=== PATIENT | male | born 1980 | race African-American/Black ===

== ENCOUNTER 2024-11-22 08:12 | Emergency (ER) | payer BC, SELFPAY ==
--- NOTE | ~2024-11-22 | CT_ITS ---
CT abdomen pelvis wo con Ordering provider: Toby Guerrero MD History: 44 years Male with . left back/flank pain . Comparison: None. Technique: CT abdomen and pelvis without IV and without oral contrast. Automated exposure control and iterative reconstruction technique were employed. The dose-length product was 1579.58 mGy-cm. Findings: VISUALIZED LOWER CHEST: Normal. UPPER ABDOMINAL ORGANS: Liver: Fat infiltration. Mild hepatomegaly. Gallbladder: Normal. Spleen: Normal. Stomach/duodenum: Normal. Pancreas: Normal. Adrenals: Left adrenal adenoma measuring 2 cm. Kidneys: 1.5 cm cyst in the left kidney upper pole. 5 mm left lower ureteric stone is noted with mild left hydronephrosis. Left perinephric fat stranding and with stranding around the left renal pelvis and ureter. The right kidney is unremarkable. PELVIC ORGANS: The bladder is slightly underfilled. BOWEL AND MESENTERY: Colon: Mild sigmoid diverticulosis without diverticulitis. Normal appendix. Small Bowel: Normal. No obstruction. Peritoneum/mesentery: No free air or free fluid. No mesenteric lymphadenopathy. RETROPERITONEUM: Normal aorta. No retroperitoneal lymphadenopathy. MUSCULOSKELETAL: Superficial soft tissues: Small fat-containing umbilical hernia. Otherwise, The superficial soft tiss ues are normal. Bones: Normal spine. Small bony fragment seen anterior to the left pubic bone most likely due to old fracture or nonunited apophysis. Bilateral hip osteoarthritic changes. Bilateral sacroiliitis with fu pilo between. IMPRESSION: 1. Left lower ureteric stone with left mild hydronephrotic changes. 2. Mild hepatomegaly with fat infiltration. 3. Left adrenal adenoma measuring 2 cm. Clinical correlation and Further evaluation with dynamic CT or MRI is advised. Reviewed, dictated and finalized at location A. IMPRESSION: 1. Left lower ureteric stone with left mild hydronephrotic changes. 2. Mild hepatomegaly with fat infiltration. 3. Left adrenal adenoma measuring 2 cm. Clinical correlation and Further evalu ation with dynamic CT or MRI is advised.
[2024-11-22 08:13] VITALS: BP 164/88; PULSE 97; RESP 17; TEMP 36.6; O2SAT 100
[2024-11-22 08:37] LABS: Basophils Percent Auto 0.2 % (0.2-1.2); Hematocrit 49.5 % (42.0-52.0); Hemoglobin 15.8 g/dL (14.0-18.0); Immature Granulocyte Absolute 0.04 K/mm3 (0.00-0.031); Immature Granulocyte Percent A 0.3 % (0-0.5); Lymphocytes Percent Auto 17.6 % (18.3-44.2); Mean Corpuscular HGB Conc 31.9 g/dl (32-36); Mean Corpuscular Hemoglobin 26.4 pg (26-34); Mean Corpuscular Volume 82.8 fl (80-100); Mean Platelet Volume 11.3 fl (7.4-10.4); Monocytes Absolute Auto 0.9 K/mm3 (0.1-0.6); Monocytes Percent Auto 6.8 % (2.6-8.5); Neutrophils Absolute Auto 9.4 K/mm3 (1.3-6.7); Neutrophils Percent Auto 75.1 % (45.5-73.1); Platelet Count Result 309 k/mm3 (150-375); Red Blood Count 5.98 M/mm3 (4.6-6.20); Red Cell Distribution Width 13.9 % (11.5-14.5); White Blood Count 12.5 K/mm3 (4.5-10.0)
[2024-11-22 08:51] LABS: Alanine Aminotransferase 32 U/L (6-50); Albumin Level 5.2 g/dL (3.5-5.1); Alkaline Phosphatase 87 U/L (38-126); Anion Gap 15 mmol/L (4-12); Aspartate Amino Transferase 29 U/L (17-59); Bilirubin,Total 1.1 mg/dL (0.2-1.3); Blood Urea Nitrogen 14 mg/dL (9-20); Calcium 9.9 mg/dL (8.4-10.2); Carbon Dioxide 26 mmol/L (22-30); Chloride 101 mmol/L (98-107); Estimated CRCL calculation 101 ml/min; Estimated Glomerular Filt Rate > 60; Glucose 119 mg/dL (65-110); Potassium 3.5 mmol/L (3.4-5.0); Sodium 142 mmol/L (137-145)
--- NOTE | 2024-11-22 08:57 | ED_ITS ---
HPI - Male Genitourinary General Chief complaint: Urogenital-Male Stated complaint: flank pain Time Seen by Provider: 11/22/24 08:30 History of Present Illness HPI Narrative: Patient is a 44-year-old male who presents ER with left-sided flank pain. Began yesterday while driving. 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 Pain is intensified today. Associated with nausea vomiting. Feels like he has some radiation to his left abdomen. He reports history of kidney stones. No history of ureteral stenting or lithotripsy. Denies any injury to his low back that could be causing spasm. No urinary frequency urgency or dysuria. No hematuria. Related Data Home Medications ?Medication ?Instructions ?Recorded ?Confirmed ?Last Taken ?Type magnesium salicylate-DPH 580 mg-25 1 - 2 tablet PO .every 6 hours PRN 11/22/24 11/22/24 Unknown History mg tablet back pain metformin 1,000 mg tablet 1,000 mg PO BID 11/22/24 11/22/24 Unknown History metoprolol tartrate 25 mg tablet 12.5 mg PO BID 11/22/24 11/22/24 Unknown History rosuvastatin 10 mg tablet 10 mg PO DAILY 11/22/24 11/22/24 Unknown History Allergies Allergy/AdvReac Type Severity Reaction Status Date / Time fructose Allergy Unknown Abdominal Verified 11/22/24 08:34 Pain Review of Systems 2 Review of Systems: All systems reviewed & are unremarkable except as noted in HPI and below Constitutional: Constitutional: Reports no additional constitutional complaints Cardiovascular: Cardiovascular: Reports no additional cardiovascular complaints Respiratory: Respiratory: Reports no additional respiratory complaints Gastrointestinal: Gastrointestinal: Reports no additional gastrointestinal complaints Genitourinary: Genitourinary: Reports no additional male genitourinary complaints Musculoskeletal: Musculoskeletal: Reports no additional musculoskeletal complaints [facility] Past Medical History Medical History (Updated 11/22/24 @ 10:47 by Toby Guerrero MD) Kidney stones Hyperlipidemia Diabetes Hypertension Exam 2 Narrative: GENERAL: Uncomfortable-appearing, well-nourished, and in no acute distress. HEAD: Normocephalic, atraumatic. ENT: Mucous membranes moist. CHEST: Clear to auscultation. No respiratory distress. HEART: Regular rate and rhythm. Normal peripheral pulses. ABDOMEN: Soft, nontender, nondistended. Over back: No reproducible midline or paraspinal tenderness of the T/L-spine. EXTREMITIES: Normal range of motion. No edema. SKIN: Warm, dry, no rash. NEURO: Alert and oriented x3. PSYCH: Normal mood and affect. Course Course Emergency Course: Pain controlled with Toradol. Informed of results. Received 1 L IV fluid. Discharge home with small supply Toradol and Tylenol with hydrocodone to help treat pain while he tries to pass the stone. Patient also be provided a urine strainer. Discussed return precautions. Vital Signs Vital signs: Vital Signs Temperature 98 F 11/22/24 08:13 Pulse Rate 97 11/22/24 08:13 Respiratory Rate 17 11/22/24 08:13 Blood Pressure 164/88 H 11/22/24 08:13 Pulse Oximetry 100 11/22/24 08:13 Oxygen Delivery Room Air 11/22/24 08:13 Temperature 98 F 11/22/24 08:13 Pulse Rate 97 11/22/24 08:13 Respiratory Rate 17 11/22/24 08:13 Blood Pressure 164/88 H 11/22/24 08:13 Pulse Oximetry 100 11/22/24 08:13 Oxygen Delivery Room Air 11/22/24 08:13 MDM - Male Genitourinary Lab Data 11/22/24 08:32 11/22/24 08:32 Labs: Lab Results 11/22/24 11/22/24 Range/Units 08:32 10:15 WBC 12.5 H (4.5-10.0) K/mm3 RBC 5.98 (4.6-6.20) M/mm3 Hgb 15.8 (14.0-18.0) g/dL Hct 49.5 (42.0-52.0) % MCV 82.8 (80-100) fl MCH 26.4 (26-34) pg MCHC 31.9 L (32-36) g/dl RDW 13.9 (11.5-14.5) % Plt Count 309 (150-375) k/mm3 MPV 11.3 H (7.4-10.4) fl Immature Gran % (Auto) 0.3 (0-0.5) % Neut % (Auto) 75.1 H (45.5-73.1) % Lymph % (Auto) 17.6 L (18.3-44.2) % Nance % (Auto) 6.8 (2.6-8.5) % Eos % (Auto) 0.0 (0-4.4) % Baso % (Auto) 0.2 (0.2-1.2) % Lymph # (Auto) 2.20 (0.9-3.2) K/mm3 Nance # (Auto) 0.9 H (0.1-0.6) K/mm3 Eos # (Auto) 0.0 (0-0.3) K/mm3 Baso # (Auto) 0.0 (0.0-0.1) K/mm3 Abs Immat Gran (auto) 0.04 H (0.00-0.031) K/mm3 Absolute Neuts (auto) 9.4 H (1.3-6.7) K/mm3 Absolute Nucleated RBC 0.000 (0.0-0.012) K/mm3 Nucleated RBC % 0.0 (0.0-0.2) % Sodium 142 (137-145) mmol/L Potassium 3.5 (3.4-5.0) mmol/L Chloride 101 (98-107) mmol/L Carbon Dioxide 26 (22-30) mmol/L Anion Gap 15 H (4-12) mmol/L BUN 14 (9-20) mg/dL Creatinine 1.21 (0.7-1.3) mg/dL Estim Creat Clear Calc 101 ml/min Estimated GFR > 60 (59 - ) Glucose 119 H (65-110) mg/dL Calcium 9.9 (8.4-10.2) mg/dL Total Bilirubin 1.1 (0.2-1.3) mg/dL AST 29 (17-59) U/L ALT 32 (6-50) U/L Alkaline Phosphatase 87 (38-126) U/L Total Protein 9.0 H (6.3-8.2) g/dL Albumin 5.2 H (3.5-5.1) g/dL Urine Color Yellow (Yellow) Urine Appearance Clear (Clear) Urine pH 6.5 (5.0-9.0) Ur Specific Waterman 1.020 (1.001-1.035) Urine Protein Trace (Negative) mg/dL Urine Glucose (UA) Negative (Negative) mg/dL Urine Ketones 1+ H (Negative) mg/dL Ur Blood (Man) 2+ H (Negative) Urine Nitrate Negative (Negative) Urine Bilirubin Negative (Negative) Urine Urobilinogen 1.0 (<2.0) mg/dL Leukocyte Esterase Rfl Trace H (Negative) SHAMAR/UL Urine RBC 11-20 H (0-2) /hpf Urine WBC 0-5 (0-3) /hpf Ur Squamous Epith Cells None seen (Few) /hpf Urine Bacteria None seen /hpf Urine Casts 0-2 Imaging Data Radiologist's impression: ITS Impressions Abdomen/Pelvis CT 11/22/24 09:05 IMPRESSION: 1. Left lower ureteric stone with left mild hydronephrotic changes. 2. Mild hepatomegaly with fat infiltration. 3. Left adrenal adenoma measuring 2 cm. Clinical correlation and Further evaluation with dynamic CT or MRI is advised. Discharge Plan Discharge Clinical Impression: Ureterolithiasis Patient Disposition: Home Condition: Stable Instructions: Ureteral Stones (ED) Additional Instructions: Return to the emergency department if you develop severe abdominal pain, severe nausea and vomiting to the point where you are unable to keep down fluids, if you develop chest pain or difficulty breathing, blood in your stool, dizziness or fainting, or if you develop any other new or concerning symptoms as these could be signs of more serious medical illness. Try to stay well hydrated. Patient Language: Iranian Prescriptions: New hydrocodone-acetaminophen 5-325 mg tablet 1 tablet PO Q6H PRN (Reason: pain) Qty: 12 0RF ondansetron 4 mg tablet,disintegrating 4 mg PO Q6H PRN (Reason: nausea and vomiting) Qty: 10 0RF ketorolac 10 mg tablet 10 mg PO Q8H PRN (Reason: pain) Qty: 12 0RF Rx Instructions: maximum total duration of 5 days from all oral, intranasal, or parenteral formulations No Action magnesium salicylate-DPH 580-25 mg tablet 1 - 2 tablet PO .every 6 hours PRN (Reason: back pain) metformin 1,000 mg tablet 1,000 mg PO BID rosuvastatin 10 mg tablet 10 mg PO DAILY metoprolol tartrate 25 mg tablet 12.5 mg PO BID Follow-up/Referrals: Ehsan Lucero MD [Physician] - 1 Week UNKNOWN,DOCTOR [Primary Care Provider] -
[2024-11-22] MEDS: SODIUM CHLORIDE 0.9% IV 1,000 ML 999 ML IV CONT (08:59)
[2024-11-22] MEDS: KETOROLAC 30 MG/ML VIAL (*BKC) IV PUSH (08:59)
--- OUTSIDE RECORDS SUMMARY | 2024-11-22 10:20 | XMS_ITS | Clinical Summary ---
Author Organization [facility] Address [address] [place] [address] Care Team Providers Care Central Station Operator Name Role Phone Patient, None Per Primary Care Provider Unavaila ble Source Comments This disclosure is being made pursuant to the Open-Plug program and maynot contain all information available regarding this patient.[facility] Allergies No known active allergies Medications omeprazole (PRILOSEC) 40 MG capsule Take 40 mg by mouth 2 (two) times daily. Active ondansetron (ZOFRAN) 4 MG tablet Take 4 mg by mouth every 8 (eight) hours as needed for Nausea. Active Social History Tobacco Use Types Packs/Day Years Used Date Smoking Tobacco: Never Smokeless Tobacco: Never Alcohol Use Standard Drinks/Week Comments Not Currently 0 (1 standard drink = 0.6 oz pur e alcohol) Sex and Gender Information Value Date Recorded Sex Assigned at Not on file Legal Sex Male 4:53 AM CDT Gender Identity Not on file Sexual Orientation Not on file Last Filed Vital Signs Vital Sign Reading Time Taken Comments Blood Pressure 123/70 09/04/2020 9:00 AM [employer] Pulse 74 09/04/2020 9:00 AM [employer] Temperature 36.2 C (97.2 F) 09/04/2020 8:12 AM [employer] Respiratory Rate 18 09/04/2020 9:00 AM [employer] Oxygen Saturation 95% 09/04/2020 9:00 AM [employer] Inhaled Oxygen Concentration - - Weight 137.6 kg (303 lb 5.7 oz) 09/04/2020 6:08 AM [employer]SH[employer] Height 185.4 cm (6' 0.99 ) 09/04/2020 6:08 AM CS T Body Mass Index 40.03 09/04/2020 6:08 AM [employer]SH[employer] Plan of Treatment Health Maintenance Due Date Last Done Comments Lab-Cholesterol Screening 1980 Lab-Hepatitis C Screening 1980 Annual Wellness Visit 01/10/1998 Hepatitis B Vaccine (1 of 3 - 19+ 3-dose series) 01/10/1999 Tetanus/Pertussis Vaccine Teen/Adult (1 - Tdap) 01/10/1999 COVID-19 Vaccine (3 - 2023-2 5 season) 2024 07/01/2021, 06/03/2021 Influenza Vaccine (#1) 2024 , 06/08/2020, 06/10/2017 Zoster (Shingles) Vaccine 50 + (1 of 2) 01/10/2030 RSV Adult (1 - 1-dose 75+ series) 01/10/2055 HIB Vaccine Aged Out No longer eligi ble based on patient's age to complete this topic HPV Vaccine (F:9-26YO,M: 9-22) Aged Out No longer eligible based on patient's age to complete this topic Hepatitis A Vaccine Aged Out No longe r eligible based on patient's age to complete this topic IPV Vaccine Aged Out No longer eligi ble based on patient's age to complete this topic Meningococcal Conjugate Vaccine Aged Out No longer eligible b ased on patient's age to complete this topic Pneumococcal Vaccines 0-49 yo Aged Out No longer eligible based on patient's age to complete this topic RSV < 20 Months Aged Out No longer el igible based on patient's age to complete this topic Care Teams Central Station Operator Relationship Specialty Start Date End Date Patient, None Per PCP - General 08/28/20
--- OUTSIDE RECORDS SUMMARY | 2024-11-22 10:20 | XMS_ITS | Continuity of Care Document ---
Author Organization [facility] Address [address] [place] [address] Phone Care Team Providers Care Alteration Manager Name Role Phone Freddie BUSTAMANTE, Tenzin Unavailable Unavailable Medications Medication Instructions Dosage Effective Dates (start - stop) Status Comments No Drug Therapy Prescribed Procedures Procedure Date HEAD RESIDENT LASIK SCREENING/ VISUAL ACUITY SCREEN PACHYMETRY NO CHARGE TOPOGRAPHY NO CHARGE Advance Directives Directive Yes / No Effective Date File Name No Information Encounters Encounter Description Practice Location Reason(s) For Visit Diagnoses Date Provider Providers Copied on Encounter [facility], [address], [place], [address], [place] tel:[phone] [facility] LASIK Screening (chief complaint) Myopia, bilateral Freddie Dave. [address], [place], [place], [id number], [place]. tel:[phone] Referring Provider: Tenzin Clay, [address] [place], [place], [address]. tel:[phone] Family History Family Member Type Diagnosis Age At Onset Father Problem Diabetes mellitus Payers Payer name Insurance type Covered democrat ID Authoriza tion(s) No Information Social History Type Description Quantity Date Captured Comments Alcohol Use Details Unknown Caffeine Use Details Tobacco Use Status Never smoked tobacco 2022 Smoking Status Never smoker Non-Smoking Tobacco Use Details : No Details Available : No Details Available Sex Male Chief Complaint And Reason For Visit From encounter dated '09/09/2022 08:50'. LASIK Screening (chief complaint). Description: The 42 year old male presents for evaluation of LASIK Screening. 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 - interested in freedom from gls and cls- VSP Functional Status Date Functional Assessmen t No Information Medications Administered Medication Instructions Dosage Effective Dates (start - stop) Status Comments No Drug Therapy Prescribed Instructions Date Instruction Additional Infor constanza Refer to Dr Austin or [facility]/- gave pt their clinic information/jls Related to Myopia, bilateral Assessments Type Assessment Date assessment Myopia, bilateral impression Per Dr Frazier _ TP looks ok but pachy is too thin - Remaining 301 microns - 38% calculation - not a good LASIK candidate - consider PRK Patient Care Teams Name Effective Dates (start - stop) Status Members No Information
--- OUTSIDE RECORDS SUMMARY | 2024-11-22 10:20 | XMS_ITS | Encounter Summary ---
Author Organization [facility] Address [address] [place] [address] Phone Care Team Providers Care Case Management Associate Name Role Phone Azam Tony Primary Care Provider [phone] Celestine Maldonado MD Primary Care Provider [phone] [place]imm Primary Care Provider Provider, No-Primary Care Primary Care Provider Unavailable Encounter Details Date Type Department Care Team (Late st Contact Info) Description 02/06/2017 Telephone [facility] - [address] [place] [phone] Brandon Coburn [address] [place], [place] [phone] Social History Tobacco Use Types Packs/Day Years Used Date Smoking Tobacco: Never Smokeless Tobacco: Never Sex and Gender Information Value Date Recorded Sex Assigned at Male 08/13/2021 12:57 PM 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 Legal Sex Male 2:59 AM CDT Gender Identity Male 08/13/2021 12:57 PM 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 Sexual Orientation Straight 08/13/2021 12 :57 PM 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 documented as of this encounter Miscellaneous Notes * Telephone Encounter - Jannet Armenta RN - 02/06/2017 4:14 PM CDT Faxed Breath testing results to [facility] documented in this encounter Plan of Treatment Not on file documented as of this encounter Visit Diagnoses Not on filedocumented in this encounter Additional Health Concerns Infection Onset Date Last Indicated Resolved Time Rule Out COVID-19 07/27/2021 07/27/2021 07/27/2021 12:58 PM 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 COVID-19 07/27/2021 07/27/2021 08/15/2021 12:5 6 PM 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 Rule Out COVID-19 07/15/2023 07/15/2023 07/15/2023 4:50 PM 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 COVID-19 07/15/2023 07/15/2023 08/14/2023 9:42 PM 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 documented as of this encounter Care Teams Case Management Associate Relationship Specialty Start Date End Date Azam Tony PCP - General 02/10/14 02/13/20 Celestine Maldonado MD [address] [place] [id number] PCP - General 02/14/20 02/16/22 Twin [place]imm [address] [place] [id number] PCP - General Family Practice 02/17/22 07/14/23 Provider, No-Primary Care PCP - General 07/15/23 documented as of this encounter
--- OUTSIDE RECORDS SUMMARY | 2024-11-22 10:20 | XMS_ITS | Clinical Summary ---
Author Organization [facility] ([facility] Address [address] [place] [address] Phone Care Team Providers Care Formulation Scientist Name Role Phone Kelton Kaur Primary Care Provider + Allergies Active Allergy Reactions Criticality Noted Date Comments Fructose Nausea And Vomiting 02/14/2020 Medications rosuvastatin (CRESTOR) 10 MG tabletIndicatio ns:Type 2 diabetes mellitus without complication, without long-term current use of insulin (HCC) Take 1 tablet (10 mg total) by mouth daily. 90 tablet 1 09/21/2024 6 Active metFORMIN (GLUCOPHAGE) 500 MG tabletIndicatio ns:Type 2 diabetes mellitus without complication, without long-term current use of insulin (HCC) 1 pill twice daily for 1 week, then up by 1 pill weekly until at 2 pills twice daily. 120 tablet 5 09/21/2024 Active metoprolol tartrate (LOPRESSOR) 25 MG tabletIndicatio ns:Irregular heart beat Take 0.5 tablets (12.5 mg total) by mouth 2 (two) times daily. 90 tablet 3 11/09/2024 6 Active Active Problems Problem Noted Date Diagnosed Date Irregular heart beat 09/14/2024 Family history of stroke 09/14/2024 Chronic left-sided low back pain, unspecified whether sciatica present 09/14/2024 PVC (premature ventricular contraction) 09/14/19 25 Morbid obesity 09/06/2020 LINDA (obstructive sleep apnea) 04/20/2020 Type 2 diabetes mellitus, wi [facility] long-term current use of insulin 02/17/2020 Osteoarthritis 02/13/2020 Intestinal bacterial overgrowth 02/13/2020 GERD (gastroesophageal reflux disease) 0 Fatty liver 02/13/2020 Constipation 02/13/2020 Diverticulitis Encounters Date Type Department Care Team Description 11/09/2024 Telephone [facility]iology [facility] [address] [place] [phone] Toby Hernandes MA Medication Management (Lopressor Rx) 11/09/2024 Telephone Cardiology Clinic [address] [place] [phone] Margarita Huerta MD 10/27/2024 2:00 PM CDT Ancillary Procedure [facility] Ultrasound [address] [place] [phone] PVC (premature ventricular contraction) 10/27/2024 12:05 PM CDT Office Visit Cardiology Clinic [address] [place] [phone] Margarita Huerta MD Encounter to establish care with new doctor (Primary Dx); Irregular heart beat; Other fatigue; PVC (premature ventricular contraction) 09/21/2024 11:30 AM GAS LEAK INSPECTOR Office Visit [facility] [address] [place] [phone] Kelton Kaur ARNP Type 2 diabetes mellitus without complication, without long-term current use of insulin ([facility]) (Primary Dx); Gardnerella vaginalis infection; LINDA (obstructive sleep apnea); Intestinal bacterial overgrowth; Gastroesophageal reflux disease without esophagitis; Constipation, unspecified constipation type; Diverticulitis; Fatty liver; Irregular heart beat; PVC (premature ventricular contraction); Family history of stroke; Other fatigue 09/19/2024 Orders Only [facility] [address] [place] [phone] Natasha, Kelton Héctor, PHYSICAL THERAPIST ASSISTANT Gardnerella vaginalis infection (Primary Dx) 09/16/2024 Orders Only [facility] [address] [place] [address] Kelton Kaur ARNP Hematuria, unspecified type (Primary Dx); Bacteria in urine 09/14/2024 1:50 PM GAS LEAK INSPECTOR Ancillary Procedure [facility] [address] [facility] [employer] [facility] [address] [place] [address] 09/14/2024 1:00 PM GAS LEAK INSPECTOR Office Visit [facility] [address] [place] [phone] Kelton Kaur ARNP LINDA (obstructive sleep apnea) (Primary Dx); Intestinal bacterial overgrowth; Gastroesophageal reflux disease without esophagitis; Fatty liver; Constipation, unspecified constipation type; Irregular heart beat; Family history of stroke; Morbid obesity (CMS); Osteoarthritis, unspecified osteoarthritis type, unspecified site; Chronic left-sided low back pain, unspecified whether sciatica present; Diverticulitis; Screening for cardiovascular condition; Type 2 diabetes mellitus without complication, without long-term current use of insulin (CMS); Other fatigue; PVC (premature ventricular contraction) from Last 3 Months Immunizations Immunization Administration Dates Next Due Influenza, Quadrivalent (PF) 06/03/2021,06/08/20 20 Moderna SARS-CoV-2 Monovalent Vaccine 07/01/2021 ,06/03/2021 Pneumococcal Conjugate Vaccine, 20 Valent 2021 Family History Medical History Relation Name Comments No Known Problems Brother Diabetes Father Heart disease Father irregular hear t rhythm Stroke Father Heart disease Mother irregular hear t rhythm Heart disease Paternal Grandfather [place] Diabetes Paternal Uncle No Known Problems Sister 1 No Known Problems Sister 2 Relation Name Status Comments Brother Alive Father Maternal Grandfather Maternal Grandmother Mother Alive Paternal Grandfather Paternal Grandmother Paternal Uncle Alive Sister 1 Alive Sister 2 Alive Social History Tobacco Use Types Packs/Day Years Used Date Smoking Tobacco: Never Passive Smoke Exposure: Past Smokeless Tobacco: Never Tobacco Cessation:Counseling Given: Not Answered Alcohol Use Standard Drinks/Week Comments Yes 2 (1 standard drink = 0.6 oz pur e alcohol) socially Overall Financial Resource Strain (CARDIA) Answe r Date Recorded How hard is it for you to pa y for the very basics like food, housing, medical care, and heating? Not hard at all 09/14/2024 PHQ-2 Answer Date Recorded PHQ-2 Score 0 09/14/2024 Hunger Vital Sign Answer Date Recorded Within the past 12 months, y ou worried that your food would run out before you got the money to buy more. Never true 09/14/19 25 Within the past 12 months, t he food you bought just didn't last and you didn't have money to get more. Never true 09/14/2024 PRAPARE - Transportation Answer Date Re corded In the past 12 months, has l ack of transportation kept you from medical appointments or from getting medications? No 08/27 In the past 12 months, has l ack of transportation kept you from meetings, work, or from getting things needed for daily living? No 09/14/2024 Housing Stability Vital Sign Answer Los e Recorded In the last 12 months, was t here a time when you were not able to pay the mortgage or rent on time? No 09/14/2024 Number of Times Moved in the Last Year Not on fi le 09/14/2024 At any time in the past 12 m [facility], were you homeless or living in a usp (including now)? No 09/14/2024 Sex and Gender Information Value Date Recorded Sex Assigned at Not on file Legal Sex Male 11:06 AM GAS LEAK INSPECTOR Gender Identity Not on file Sexual Orientation Not on file Last Filed Vital Signs Vital Sign Reading Time Taken Comments Blood Pressure 124/85 10/27/2024 12:15 PM CDT Pulse 78 10/27/2024 12:15 PM CDT Temperature 36.3 C (97.3 F) 09/21/2024 11:47 AM GAS LEAK INSPECTOR Respiratory Rate 18 09/21/2024 11:47 AM GAS LEAK INSPECTOR Oxygen Saturation 97% 10/27/2024 12:15 PM CDT Inhaled Oxygen Concentration - - Weight 142.9 kg (315 lb) 10/27/2024 12:15 PM CDT Height 185.4 cm (6' 1 ) 10/27/2024 12:15 PM CDT Body Mass Index 41.56 10/27/2024 12:15 PM CDT Plan of Treatment Upcoming Encounters Date Type Department Care Team (Late st Contact Info) Description 12/20/2024 10:30 AM CDT Office Visit [facility] [address] [place] [phone] Kelton Kaur ARNP [address] [place] [address] 01/26/2025 9:00 AM CDT Ancillary Procedure [facility] Ultrasound [address] [place] [phone] 01/26/2025 10:00 AM CDT Office Visit Cardiology Clinic [address] [place] [phone] Margarita Huerta MD [address] [place], [place] [phone] Health Maintenance Due Date Last Done Comments DTAP/TDAP/TD VACCINES (1 - Tdap) 03/21/2025 Postponed from 01/10/1999 (Patient Refused) INFLUENZA VACCINE (Season Ended) 2025 06/03/2021, 06/08/2020, 08/04/2019 (Declined) Kidney Health Evaluation 09/15/2025 09/15/2024 HEPATITIS B VACCINES (1 of 3 - 19+ 3-dose series) 09/21/2025 Postponed from 01/10/1999 (Patient Scheduled) ZOSTER VACCINES (1 of 2) 01/10/2030 RSV PATIENTS AGED 60+ OR (1 - 1-dose 75+ series) 01/10/2055 COVID VACCINES Discontinued 02/17/2022, 07/01/2021, 06/03/2021 PNEUMOCOCCAL VACCINE Completed 02/17/2022 HEPATITIS A VACCINES Aged Out No long er eligible based on patient's age to complete this topic HPV VACCINES Aged Out No longer eligi ble based on patient's age to complete this topic MENINGOCOCCAL B VACCINE Aged Out No l onger eligible based on patient's age to complete this topic MENINGOCOCCAL VACCINE Aged Out No luke trisha eligible based on patient's age to complete this topic MMR VACCINES Discontinued POLIO VACCINES Aged Out No longer cata faye based on patient's age to complete this topic VARICELLA VACCINES Discontinued Goals Goal Patient Goal Type Associated Problems Recent Progress Patient-Stated? Author Exercise 3x per week (30 min per time) Exercise No Tamera Simpson RN Procedures Procedure Name Priority Date/Time Associated Diagnosis Comments HOLTER MONITOR 3DAYS TO 7DAYS Routine 10/27/2024 2:12 PM CDT PVC (premature ventricular contraction) ECG 12-LEAD Routine 10/27/2024 12:21 PM CDT Irregular heart beat PVC (premature ventricular contraction) POCT GLUCOSE Routine 09/21/2024 12:15 PM GAS LEAK INSPECTOR Type 2 diabetes mellitus without complication, without long-term current use of insulin (CMS) PROTIME-INR Routine 09/15/2024 9:24 AM GAS LEAK INSPECTOR Irregular heartbeat URINALYSIS Routine 09/15/2024 8:45 AM GAS LEAK INSPECTOR Other fatigue URINE MICROSCOPIC Routine 09/15/2024 8:4 5 AM GAS LEAK INSPECTOR Other fatigue URINE MICROSCOPIC Routine 09/15/2024 8:4 5 AM GAS LEAK INSPECTOR Other fatigue MICROALBUMIN / CREATININE URINE RATIO Routine 09/15/2024 8:45 AM GAS LEAK INSPECTOR Type 2 diabetes mellitus without complication, without long-term current use of insulin (CMS) URINE CULTURE Add-On 09/15/2024 8:45 AM GAS LEAK INSPECTOR Hematuria, unspecified type Bacteria in urine MAGNESIUM Routine 09/15/2024 8:29 AM GAS LEAK INSPECTOR Irregular heart beat TSH Routine 09/15/2024 8:29 AM GAS LEAK INSPECTOR Irregular heart beat Other fatigue T4, FREE Routine 09/15/2024 8:29 AM GAS LEAK INSPECTOR Irregular heart beat Other fatigue LIPID PANEL Routine 09/15/2024 8:29 AM GAS LEAK INSPECTOR Screening for cardiovascular condition Type 2 diabetes mellitus without complication, without long-term current use of insulin (CMS) HEMOGLOBIN A1C Routine 09/15/2024 8:29 AM GAS LEAK INSPECTOR Type 2 diabetes mellitus without complication, without long-term current use of insulin (CMS) COMPREHENSIVE METABOLIC PANEL Routine 09/15/2024 8:29 AM GAS LEAK INSPECTOR Gastroesophageal reflux disease without esophagitis Fatty liver Type 2 diabetes mellitus without complication, without long-term current use of insulin (CMS) CBC WITH DIFFERENTIAL Routine 09/15/2024 8:29 AM GAS LEAK INSPECTOR LINDA (obstructive sleep apnea) Other fatigue XR CHEST PA AND LATERAL (52096) Routine 09/14/2024 2:20 PM GAS LEAK INSPECTOR Irregular heart beat Family history of stroke ECG 12-LEAD Routine 09/14/2024 1:50 PM GAS LEAK INSPECTOR Irregular heart beat Family history of stroke from Last 3 Months Results * HOLTER MONITOR 3DAYS TO 7DAYS (10/27/2024 2:12 PM CDT) Anatomical Region Laterality Modality Ultrasound Narrative 11/09/2024 9:38 AM CDT Indication: PVC Duration of Study: 3 days Heart Rate/Rhythm Data: Baseline Findings: Normal sinus rhythm The average heart rate was 87 bpm. The minimum heart rate was 53 bpm. The maximum heart rate was 160 bpm. 14% burden of sinus tachycardia Supraventricular Events: 4 episodes of atrial tachycardia, the longest was 12 beats long, the fastest was 4 beats long with a max heart rate of 131 bpm. 6% burden of PACs. Ventricular Events: 2.2% burden of PVCs. Pauses: No pauses were reported. Patient Events: No patient triggered. IMPRESSION: 1. The baseline rhythm was sinus normal sinus rhythm with 14% burden of sinus tachycardia. 2. 2.2% burden of PVCs. 3. 4 episodes of atrial tachycardia, 6% burden of PACs. 4. No pauses. 5. There is no evidence of atrial fibrillation. Margarita Huerta MD CV CARDIAC SERVICES ORDERABLES Final Result * ECG 12 lead (10/27/2024 12:21 PM CDT) Only the most recent of2 resultswithin the time period is included. Heart Rate 86 bpm [facility] TRACEMASTER RR INTERVAL 728 ms [facility] TRACEMASTER ATRIAL RATE [address] Interval 152 ms [facility] TRACEMASTER P Duration 128 ms [facility] TRACEMASTER P Horizontal Deputy -8 deg [facility] TRACEMASTER P Deputy 35 deg [facility] TRACEMASTER Q Onset 507 ms [facility] TRACEMASTER QRSD Interval 85 ms [facility] TRACEMASTER QT Interval 368 ms [facility]MC TRACEMASTER QTCB 431 ms [facility] TRACEMASTER QTCF 415 ms [facility] TRACEMASTER QRS Horizontal Deputy -34 deg [facility] TRACEMASTER QRS Deputy 32 deg [facility] TRACEMASTER I-40 Horizontal Deputy 52 deg MMC TRACEMASTER I 40 AXIS 49 deg MMC TRACEMASTER T-40 Horizontal Deputy -62 deg MMC TRACEMASTER T 40 AXIS 28 deg [facility] TRACEMASTER T Horizontal Deputy 82 deg [facility] TRACEMASTER T Wave Deputy 39 deg [facility] TRACEMASTER S-T Horizontal Deputy [address] AXIS 74 deg [facility] TRACEMASTER 10/27/2024 12:2 1 PM CDT Narrative [facility] - 10/27/2024 12:24 PM CDT - ABNORMAL ECG - Sinus rhythm Multiple ventricular premature complexes SIMILAR TO PREVIOUS Procedure Note Ki Sanchez MD - 10/27/2024 - ABNORMAL ECG - Sinus rhythm Multiple ventricular premature complexes SIMILAR TO PREVIOUS Margarita Huerta MD ECG ORDERABLES Final Result [facility] [address] [place] [address] * POCT glucose (09/21/2024 12:15 PM GAS LEAK INSPECTOR) POCT GLUCOSE 100 mg/dL [facility] Blood 09/21/2024 12:1 5 PM GAS LEAK INSPECTOR Kelton DORANP 2 TEST ORDERABLES Final Result Performing Organization Address [facility]/ZIP Co de Phone Number [facility] [address] [place] [address], [facility] * Protime-INR (09/15/2024 9:24 AM GAS LEAK INSPECTOR) Protime 13.2 12.0 - 14.5 seconds 09/15/2024 1:48 PM GAS LEAK INSPECTOR [facility] INR 1.0 0.9 - 1.1 09/15/2024 1:48 PM GAS LEAK INSPECTOR [facility] Blood STRUCTURE OF PART OF RIGHT UPPER LIMB / Unknown Venipuncture / Unknown 09/15/2024 9:24 AM GAS LEAK INSPECTOR 09/15/2024 9:24 AM GAS LEAK INSPECTOR Kelton Kaur [facility] BLOOD ORDERABLES Fin al Result Performing Organization Address City/[facility]/ZIP Co de Phone Number [facility] [address] [place] [address], [facility] * (ABNORMAL) Urine Microscopic (09/15/2024 8:45 AM GAS LEAK INSPECTOR) WBC, UA None Seen 0 - 4 /hpf 09/15/2024 1:52 PM GAS LEAK INSPECTOR [facility] RBC, UA 11-25(A) 0 - 1 /hpf 09/15/2024 1:52 PM GAS LEAK INSPECTOR [facility] Squam Epithel, UA None Seen 0 - 5 /hpf 09/15/2024 1:52 PM GAS LEAK INSPECTOR [facility] Bacteria, UA None Seen None Seen /hpf 09/15/2024 1:52 PM GAS LEAK INSPECTOR [facility] Mucous, UA Moderate(A ) None Seen to Few /hpf 09/15/2024 1:52 PM GAS LEAK INSPECTOR [facility] Amorphous Crystal Many(A) None Seen /hpf 09/15/2024 1:52 PM GAS LEAK INSPECTOR [facility] Urine (Urine, voided) Collection / Unknown 09/15/2024 8:45 AM GAS LEAK INSPECTOR 09/15/2024 8:45 AM GAS LEAK INSPECTOR Narrative [facility] - 09/15/2024 1:52 PM GAS LEAK INSPECTOR [facility] ASP RECOMMENDS AGAINST TREATMENT OF ASYMPTOMATIC BACTERIURIA/PYURIA (exceptions: and prior to invasive urologic procedure). Cystitis symptoms include frequency, urgency, dysuria, and/or suprapubic pain. ASP = Antimicrobial Stewardship Program [facility] URINE ORDERABLES Final R esult Performing Organization Address [facility] de Phone Number [facility] [address] * (ABNORMAL) Microalbumin / Creatinine Urine Ratio (09/15/2024 8:45 AM GAS LEAK INSPECTOR) Creatinine Urine Random 359(H) 63 - 166 mg/dL 09/15/2024 2:01 PM GAS LEAK INSPECTOR [facility] Microalbumin Urine 62 See below mg/L 09/15/2024 2:01 PM GAS LEAK INSPECTOR [facility] Microalbumin/Crea tinine Ratio 17 <30 mg/g 09/15/2024 2:01 PM GAS LEAK INSPECTOR [facility] Comment: CATEGORY Microalbumin/Creatinine Ratio Normal < 30 mg/g Microalbuminuria 30 - 299 mg/g Macroalbuminuria >= 300 mg/g *Based on [place] [employer] guideline Urine (Urine, voided) Collection / Unknown 09/15/2024 8:45 AM GAS LEAK INSPECTOR 09/15/2024 8:45 AM GAS LEAK INSPECTOR [facility] URINE ORDERABLES Final R esult Performing Organization Address [facility] de Phone Number [facility] [address] * (ABNORMAL) Urinalysis (09/15/2024 8:45 AM GAS LEAK INSPECTOR) Color, UA Yellow Pale Yellow to Yellow 09/15/2024 1:32 PM GAS LEAK INSPECTOR [facility] Clarity, UA Excessively Turbid(A) Clear 09/15/2024 1:32 PM GAS LEAK INSPECTOR [facility] Specific Zearing, UA 1.031(A) 1.005 - 1.030 09/15/2024 1:32 PM GAS LEAK INSPECTOR [facility] pH, UA 5.5 5 - 8 pH Units 09/15/2024 1:32 PM GAS LEAK INSPECTOR [facility] Leukocytes, UA 25(A) Negative SHAMAR/mcL 09/15/2024 1:32 PM GAS LEAK INSPECTOR [facility] Nitrite, UA Negative Negative 09/15/2024 1:32 PM GAS LEAK INSPECTOR [facility] Protein, UA 20(A) Negative mg/dL 09/15/2024 1:32 PM GAS LEAK INSPECTOR [facility] Glucose, UA Normal Normal mg/dL 09/15/2024 1:32 PM GAS LEAK INSPECTOR [facility] Ketones, UA Negative Negative mg/dL 09/15/2024 1:32 PM GAS LEAK INSPECTOR [facility] Urobilinogen, UA Normal Normal mg/dL 09/15/2024 1:32 PM GAS LEAK INSPECTOR [facility] Bilirubin, UA Negative Negative mg/dL 09/15/2024 1:32 PM GAS LEAK INSPECTOR [facility] Blood 0.2(A) Negative mg/dL 09/15/2024 1:32 PM GAS LEAK INSPECTOR [facility] Urine (Urine, voided) Collection / Unknown 09/15/2024 8:45 AM GAS LEAK INSPECTOR 09/15/2024 8:45 AM GAS LEAK INSPECTOR Narrative [facility] - 09/15/2024 1:32 PM GAS LEAK INSPECTOR [facility] ASP RECOMMENDS AGAINST TREATMENT OF ASYMPTOMATIC BACTERIURIA/PYURIA (exceptions: and prior to invasive urologic procedure). Cystitis symptoms include frequency, urgency, dysuria, and/or suprapubic pain. ASP = Antimicrobial Stewardship Program Kelton Kaur [facility] URINE ORDERABLES Final R esult [facility] [address] [place] [address], [facility] * (ABNORMAL) Urine Culture (09/15/2024 8:45 AM GAS LEAK INSPECTOR) Urine Culture, Routine 50,000 - 74,000 col/mL Gardnerella vaginalis(A) 09/18/2024 8:06 AM GAS LEAK INSPECTOR [facility] Urine (Urine, voided) Collection / Unknown 09/15/2024 8:45 AM GAS LEAK INSPECTOR 09/15/2024 8:45 AM GAS LEAK INSPECTOR Narrative [facility] - 09/18/2024 8:06 AM GAS LEAK INSPECTOR [facility] ASP RECOMMENDS AGAINST TREATMENT OF ASYMPTOMATIC BACTERIURIA/PYURIA (exceptions: and prior to invasive urologic procedure). Cystitis symptoms include frequency, urgency, dysuria, and/or suprapubic pain. ASP = Antimicrobial Stewardship Program Kelton DORANP MICROBIOLOGY - GENERAL O RDERABLES Final Result [facility] [address] [place] [address], [facility] * (ABNORMAL) Cbc With Differential (09/15/2024 8:29 AM GAS LEAK INSPECTOR) WBC 6.8 4.0 - 10.6 th/mm3 09/15/2024 1:22 PM GAS LEAK INSPECTOR [facility] Hemoglobin 15.9 13.1 - 17.3 g/dL 09/15/2024 1:22 PM GAS LEAK INSPECTOR [facility] Hematocrit 49.1 40.0 - 50.6 % 09/15/2024 1:22 PM GAS LEAK INSPECTOR [facility] RBC 5.92(H) 4.32 - 5.77 mil/mm3 09/15/2024 1:22 PM GAS LEAK INSPECTOR [facility] Platelets 260 147 - 362 th/mm3 09/15/2024 1:22 PM GAS LEAK INSPECTOR [facility] MCV 82.9 81.4 - 95.1 fl 09/15/2024 1:22 PM GAS LEAK INSPECTOR [facility] MCH 26.9(L) 27.3 - 32.6 pg 09/15/2024 1:22 PM GAS LEAK INSPECTOR [facility] MCHC 32.4 31.7 - 35.5 g/dL 09/15/2024 1:22 PM GAS LEAK INSPECTOR [facility] RDW 14.4 11.9 - 15.4 % 09/15/2024 1:22 PM GAS LEAK INSPECTOR [facility] MPV 11.4 9.1 - 12.3 fl 09/15/2024 1:22 PM GAS LEAK INSPECTOR [facility] NRBC Relative 0.0 Not Established % 09/15/2024 1:22 PM GAS LEAK INSPECTOR [facility] NRBC Absolute 0.00 0.00 th/mm3 09/15/2024 1:22 PM GAS LEAK INSPECTOR [facility] Neutrophils Relative 42.1 Not Established % 09/15/2024 1:22 PM GAS LEAK INSPECTOR [facility] Lymphocytes Relative 45.9 Not Established % 09/15/2024 1:22 PM GAS LEAK INSPECTOR [facility] Monocytes Relative 8.3 Not Established % 09/15/2024 1:22 PM GAS LEAK INSPECTOR [facility] Eosinophils Relative 2.5 Not Established % 09/15/2024 1:22 PM GAS LEAK INSPECTOR [facility] Basophils Relative 0.6 Not Established % 09/15/2024 1:22 PM GAS LEAK INSPECTOR [facility] Immature Granulocyte Relative 0.6 Not Established % 09/15/2024 1:22 PM GAS LEAK INSPECTOR [facility] Neutrophils Absolute 2.86 1.74 - 7.22 th/mm3 09/15/2024 1:22 PM GAS LEAK INSPECTOR [facility] Lymphocytes Absolute 3.11 1.09 - 3.58 th/mm3 09/15/2024 1:22 PM GAS LEAK INSPECTOR [facility] Monocytes Absolute 0.56 0.30 - 0.96 th/mm3 09/15/2024 1:22 PM GAS LEAK INSPECTOR [facility] Eosinophils Absolute 0.17 0.04 - 0.50 th/mm3 09/15/2024 1:22 PM GAS LEAK INSPECTOR [facility] Basophils Absolute 0.04 0.00 - 0.09 th/mm3 09/15/2024 1:22 PM GAS LEAK INSPECTOR [facility] Immature Granulocyte Absolute 0.04 0.00 - 0.09 th/mm3 09/15/2024 1:22 PM GAS LEAK INSPECTOR [facility] Blood (Hand, right) Venipuncture / Unknown 09/15/2024 8:29 AM GAS LEAK INSPECTOR 09/15/2024 9:39 AM GAS LEAK INSPECTOR Kelton Kaur [facility] BLOOD ORDERABLES Fin al Result Performing Organization Address City/State/[facility] Co de Phone Number [facility] [address] [place] [address] * TSH (09/15/2024 8:29 AM GAS LEAK INSPECTOR) TSH 0.97 0.35 - 4.94 mcIU/mL 09/15/2024 2:10 PM GAS LEAK INSPECTOR [facility] Blood (Hand, right) Venipuncture / Unknown 09/15/2024 8:29 AM GAS LEAK INSPECTOR 09/15/2024 9:40 AM GAS LEAK INSPECTOR [facility] BLOOD ORDERABLES Fin al Result Performing Organization Address [facility]/ZIP Co de Phone Number [facility] [address] * T4, Free (09/15/2024 8:29 AM GAS LEAK INSPECTOR) Pathologist [facility] Free T4 1.04 0.70 - 1.48 ng/dL 09/15/2024 2:10 PM GAS LEAK INSPECTOR [facility] Blood (Hand, right) Venipuncture / Unknown 09/15/2024 8:29 AM GAS LEAK INSPECTOR 09/15/2024 9:40 AM GAS LEAK INSPECTOR [facility] BLOOD ORDERABLES Fin al Result Performing Organization Address [facility] Co de Phone Number [facility] [address] * Magnesium (09/15/2024 8:29 AM GAS LEAK INSPECTOR) [facility] Magnesium 1.9 1.6 - 2.6 mg/dL 09/15/2024 2:03 PM GAS LEAK INSPECTOR [facility] Blood (Hand, right) Venipuncture / Unknown 09/15/2024 8:29 AM GAS LEAK INSPECTOR 09/15/2024 9:40 AM GAS LEAK INSPECTOR Result [facility] Kelton Anaya Natasha [facility] BLOOD ORDERABLES Fin al Result Performing Organization Address [facility] Co de Phone Number [facility] [facility] [address] * (ABNORMAL) Hemoglobin A1C (09/15/2024 8:29 AM GAS LEAK INSPECTOR) Pathologist [facility] [place] Hemoglobin A1C 6.1(H) <5.7 % 09/15/2024 2:00 PM GAS LEAK INSPECTOR [facility] Estimated Average Glucose 128 Not Established mg/dL 09/15/2024 2:00 PM GAS LEAK INSPECTOR [facility] Blood (Hand, right) Venipuncture / Unknown 09/15/2024 8:29 AM GAS LEAK INSPECTOR 09/15/2024 9:39 AM GAS LEAK INSPECTOR Result [facility] Kelton Kaur [facility] BLOOD ORDERABLES Fin al Result [facility] [address] [place] [address], [facility] * (ABNORMAL) Lipid Panel (09/15/2024 8:29 AM GAS LEAK INSPECTOR) Fasting? Yes 09/15/2024 2:05 PM GAS LEAK INSPECTOR [facility] Triglycerides 133 <150 mg/dL 09/15/2024 2:05 PM GAS LEAK INSPECTOR [facility] Comment: Triglyceride Result Interpretation* < 150 Normal 150 - 199 Borderline High 200 - 499 High > 499 Very High * National Cholesterol Education Program Cholesterol 223(H) <200 mg/dL 09/15/2024 2:05 PM GAS LEAK INSPECTOR [facility] Comment: Cholesterol Result Interpretation* < 200 Desirable 200 - 239 Borderline High > 239 High *National Cholesterol Education Program LDL Calculated 147(H) <100 mg/dL 09/15/2024 2:05 PM GAS LEAK INSPECTOR [facility] Comment: LDL Result Interpretation* < 100 Optimal 100 - 129 Near Optimal 130 - 159 Borderline High 160 - 189 High >= 190 Very High *National Cholesterol Education Program HDL 49 >=40 mg/dL 09/15/2024 2:05 PM GAS LEAK INSPECTOR [facility] Comment: HDL Result Interpretation* <40 Low 40-59 Normal >59 Desirable *National Cholesterol Education Program VLDL Estimate 27 Not Established mg/dL 09/15/2024 2:05 PM GAS LEAK INSPECTOR [facility] Non-HDL Cholesterol, Calculated 174(H) <130 mg/dL 09/15/2024 2:05 PM GAS LEAK INSPECTOR [facility] Comment: Non-HDL Cholesterol, Interpretation* <130 Optimal 130 - 159 Above Optimal 160 - 189 Borderline High 190 - 219 High >= 220 Very High * National Cholesterol Education Program Blood (Hand, right) Venipuncture / Unknown 09/15/2024 8:29 AM GAS LEAK INSPECTOR 09/15/2024 9:40 AM GAS LEAK INSPECTOR us [facility] BLOOD ORDERABLES Fin al Result [facility] [address] [place] [address], [facility] * (ABNORMAL) Comprehensive Metabolic Panel (09/15/2024 8:29 AM GAS LEAK INSPECTOR) Sodium 142 136 - 145 mmol/L 09/15/2024 2:03 PM [facility] Potassium 4.0 3.5 - 5.1 mmol/L 09/15/2024 2:03 PM [facility] Chloride 107 100 - 109 mmol/L 09/15/2024 2:03 PM [facility] CO2 23 22 - 29 mmol/L 09/15/2024 2:03 PM [facility] Anion Gap 12(H) 4 - 11 mmol/L 09/15/2024 2:03 PM [facility] Glucose 99 74 - 100 mg/dL 09/15/2024 2:03 PM [facility] BUN 12 9 - 21 mg/dL 09/15/2024 2:03 PM [facility] Creatinine 1.1 0.7 - 1.3 mg/dL 09/15/2024 2:03 PM [facility] BUN/Creatinine Ratio 10.9 8.0 - 24.0 ratio 09/15/2024 2:03 PM [facility] Calcium 9.9 8.4 - 10.2 mg/dL 09/15/2024 2:03 PM [facility] Total Bilirubin 0.8 0.2 - 1.2 mg/dL 09/15/2024 2:03 PM [facility] Alkaline Phosphatase 75 40 - 150 U/L 09/15/2024 2:03 PM [facility] ALT 28 <45 U/L 09/15/2024 2:03 PM GAS LEAK INSPECTOR [facility] AST 18 11 - 34 U/L 09/15/2024 2:03 PM GAS LEAK INSPECTOR [facility] Total Protein 7.8 6.4 - 8.3 g/dL 09/15/2024 2:03 PM GAS LEAK INSPECTOR [facility] Albumin 4.7(H) 3.3 - 4.5 g/dL 09/15/2024 2:03 PM GAS LEAK INSPECTOR [facility] Globulin 3.1 g/dL 09/15/2024 2:03 PM GAS LEAK INSPECTOR [facility] A/G Ratio 1.5 0.9 - 1.7 Ratio 09/15/2024 2:03 PM GAS LEAK INSPECTOR [facility] GFR () 88 >=60 mL/min/1.7 3m2 09/15/2024 2:03 PM GAS LEAK INSPECTOR [facility] Blood (Hand, right) Venipuncture / Unknown 09/15/2024 8:29 AM GAS LEAK INSPECTOR 09/15/2024 9:40 AM GAS LEAK INSPECTOR Kelton Kaur [facility] BLOOD ORDERABLES Fin al Result [facility] [address] [place] [address], [facility] * XR CHEST PA AND LATERAL ([id number]) (09/14/2024 2:20 PM GAS LEAK INSPECTOR) Anatomical Region Laterality Modality Chest Radiographic Abbey ging 09/14/2024 2:20 PM GAS LEAK INSPECTOR Impressions 09/14/2024 2:50 PM GAS LEAK INSPECTOR 1.No acute cardiopulmonary disease. Electronically signed by: Ajit Reilly M.D. - 09/14/2024 2:50 PM Narrative 09/14/2024 2:50 PM GAS LEAK INSPECTOR EXAM: DX CHEST 2 VIEWS CLINICIAN'S HISTORY: reports irregular hr Irregular heart beat-Family history of stroke HISTORY REPORTED TO TECHNOLOGIST: Patient states he has an irregular heartbeat. Family history of stroke. Not a smoker. No surgeries to chest. No history of cancer, COPD or ashtma COMPARISON: 2020 Findings: The cardiomediastinal silhouette and pulmonary vasculature are normal. No pleural effusion or pneumothorax. No focal lung opacities. The remainder is unremarkable for the patient's age. Procedure Note Azeem Reilly MD - 09/14/2024 EXAM: DX CHEST 2 VIEWS CLINICIAN'S HISTORY: reports irregular hr Irregular heart beat-Family history of stroke HISTORY REPORTED TO TECHNOLOGIST: Patient states he has an irregular heartbeat. Family history of stroke. Not a smoker. No surgeries to chest. No history of cancer, COPD or ashtma COMPARISON: 2019 Findings: The cardiomediastinal silhouette and pulmonary vasculature are normal. No pleural effusion or pneumothorax. No focal lung opacities. The remainder is unremarkable for the patient's age. Impression: 1.No acute cardiopulmonary disease. Electronically signed by: Ajit Reilly M.D. - 09/14/2024 2:50 PM [facility] O RDERABLES Final Result from Last 3 Months Insurance Care Teams Formulation Scientist Relationship Specialty Start Date End Date Kelton Kaur ARNP [address] [place] [address] [place] [address] PCP - General Nurse Practitioner wo Specialty 09/14/24
--- OUTSIDE RECORDS SUMMARY | 2024-11-22 10:20 | XMS_ITS | Encounter Summary ---
Author Organization [facility] Care Address [address] [place] [address] Phone Care Team Providers Care Power Press Operator Name Role Phone Azam Tony Primary Care Provider [phone] Celestine Maldonado MD Primary Care Provider [phone] [facility] Primary Care Provider Provider, No-Primary Care Primary Care Provider Unavailable Encounter Details Date Type Department Care Team (Late st Contact Info) Description 02/13/2017 [facility] - [address] [place] [address] Alyce Guzmán RN Social History Tobacco Use Types Packs/Day Years Used Date Smoking Tobacco: Never Smokeless Tobacco: Never Sex and Gender Information Value Date Recorded Sex Assigned at Male 08/13/2021 12:57 PM COMPENSATION AND BENEFITS ADVISOR Legal Sex Male 2:59 AM CDT Gender Identity Male 08/13/2021 12:57 PM COMPENSATION AND BENEFITS ADVISOR Sexual Orientation Straight 08/13/2021 12 :57 PM COMPENSATION AND BENEFITS ADVISOR documented as of this encounter Miscellaneous Notes * Telephone Encounter - Alyce Guzmán RN - 02/13/2017 12:27 PM CDT Referring would like fax ?? Stout, Exodus G ?? Sent: ThuFebruary 13, 2017 10:18 AM ?? To: Alyce Guzmán RN ?? Nhan Preston ?? : 1980 ?? Message ?? Reji Mead! Dr. Tony's office (PTs PCP), called requesting the PTs lactose breath test results. I see that he had the test done on 01/26. Could you fax those results over to Dr. Tony over at [phone]? Thanks! ?? Exodus Stout ?? 02/13/17 @ 1228 - Fructose Hydrogen Breath Test results faxed to Dr Tony @ [phone]. ??? Glucose completed 11/17/16. ??? Fructose 01/26/17 ??? Lactose not scheduled. documented in this encounter Plan of Treatment Not on file documented as of this encounter Visit Diagnoses Not on filedocumented in this encounter Additional Health Concerns Infection Onset Date Last Indicated Resolved Time Rule Out COVID-19 07/27/2021 07/27/2021 07/27/2021 12:58 PM COMPENSATION AND BENEFITS ADVISOR COVID-19 07/27/2021 07/27/2021 08/15/2021 12:5 6 PM COMPENSATION AND BENEFITS ADVISOR Rule Out COVID-19 07/15/2023 07/15/2023 07/15/2023 4:50 PM COMPENSATION AND BENEFITS ADVISOR COVID-19 07/15/2023 07/15/2023 08/14/2023 9:42 PM COMPENSATION AND BENEFITS ADVISOR documented as of this encounter Care Teams Power Press Operator Relationship Specialty Start Date End Date Azam Tony PCP - General 02/10/14 02/13/20 Celestine Maldonado MD [address] [place] [id number] PCP - General 02/14/20 02/16/22 Twin Grimm [address] [place] [id number] PCP - General Family Practice 02/17/22 07/14/23 Provider, No-Primary Care PCP - General 07/15/23 documented as of this encounter
--- OUTSIDE RECORDS SUMMARY | 2024-11-22 10:20 | XMS_ITS | Clinical Summary ---
Author Organization [facility] Care Address [address] [place] [address] Phone Care Team Providers Care Coating Inspector Name Role Phone Provider, No-Primary Care Primary Care Provider Unavailable Source Comments This disclosure is being made pursuant to the Care Everywhere program,applicable federal and state laws, and may not contain all informationavailable regarding this patient.[facility] Practices Allergies Active Allergy Reactions Criticality Noted Date Comments Fructose Stomach Pain 02/14/2020 Medications omeprazole 40 mg enteric coated capsule 0 Active traMADol 50 mg tablet Take 50 mg by mouth as needed. Active gabapentin 100 mg capsuleIndicatio ns:Acute low back pain, unspecified back pain laterality, unspecified whether sciatica present Take 1 capsule three times daily. May titrate up by to 2-3 capsules three times daily based on pain response. 270 capsule 3 2 Active Active Problems Problem Noted Date Diagnosed Date Morbid obesity 04/20/2020 LINDA (obstructive sleep apnea) 04/20/2020 Type 2 diabetes mellitus wit hout complication, without long-term current use of insulin 02/17/2020 GERD (gastroesophageal reflux disease) 0 Fatty liver 02/13/2020 Osteoarthritis 02/13/2020 Constipation 02/13/2020 Intestinal bacterial overgrowth 02/13/2020 Sprain of lumbar region 01/02/2003 Backache, unspecified 12/30/2002 Immunizations Immunization Administration Dates Next Due COVID-19, mRNA (MODERNA) 100mcg/0.5mL ,07/01/2021,06/03/2021,2020 COVID-19, mRNA, Half-Dose (M ODERNA Booster) 50mcg/0.25mL 02/17/2022 Influenza, quadrivalent PF 06/03/2021,06/08/2020 ,06/10/2017 Pneumococcal Conjugate, PCV2 0 (Prevnar 20) 02/17/2022 Family History Medical History Relation Comments Cancer Father Diabetes Father Stroke Father Cancer Maternal Grandfather Stroke Maternal Grandfather Relation Status Comments Father Maternal Grandfather Social History Tobacco Use Types Packs/Day Years Used Date Smoking Tobacco: Never Smokeless Tobacco: Never Tobacco Cessation:Counseling Given: No Alcohol Use Standard Drinks/Week Comments Never 0 (1 standard drink = 0.6 oz pur e alcohol) Abuse Risk Answer Date Recorded Are you in an UNsafe relationship? Not on file 10/04/2023 Does your partner/boyfriend or girlfriend hit, kick, hurt, or threaten you? Not on file 10/04/2023 Have you suffered any injury as a result of abuse in the past year? Not on file 10/04/2023 Does your partner/boyfriend or girlfriend ever try to control you by threatening you or your family? Not on file 024 Are you currently being forc ed to engage in sexual activity? Not on file 10/04/2023 Are you being abused or thre atened in your work or home environment? Not on file 10/04/2023 Are you being forced to work? Not on file Is the patient a d ependent adult ? Not on file 10/04/2023 Do you feel unsafe at home? Does not apply 09/24 Has anyone tried to force yo u to sign papers or to use your money against your will? Does not apply 10/04/2023 Sex and Gender Information Value Date Recorded Sex Assigned at Male 08/13/2021 12:57 PM CHILD CARE EDUCATION COORDINATOR Legal Sex Male 2:59 AM CDT Gender Identity Male 08/13/2021 12:57 PM CHILD CARE EDUCATION COORDINATOR Sexual Orientation Straight 08/13/2021 12 :57 PM CHILD CARE EDUCATION COORDINATOR Last Filed Vital Signs Vital Sign Reading Time Taken Comments Blood Pressure 144/92 07/15/2023 4:31 PM CHILD CARE EDUCATION COORDINATOR Pulse 96 07/15/2023 4:31 PM CHILD CARE EDUCATION COORDINATOR Temperature 37.1 C (98.8 F) 07/15/2023 4:31 PM CHILD CARE EDUCATION COORDINATOR Respiratory Rate 16 05/06/2022 9:26 AM CDT Oxygen Saturation 98% 07/15/2023 4:31 PM CHILD CARE EDUCATION COORDINATOR Inhaled Oxygen Concentration - - Weight 148.4 kg (327 lb 2.6 oz) 07/15/2023 4:31 PM CHILD CARE EDUCATION COORDINATOR Height 185.4 cm (6' 0.99 ) 10/07/2022 1 2:49 PM CDT Body Mass Index 43.17 10/07/2022 12:49 PM CDT Plan of Treatment Health Maintenance Due Date Last Done Comments Hepatitis B Vaccine (1 of 3 - 19+ 3-dose series) 01/10/1999 Tetanus Diphtheria Pertussis (1 - Tdap) 01/10/1999 DIABETIC: Retinal Eye Exam 02/17/2020 DIABETIC: Hemoglobin A1C 08/21/2022 02/18/2022, 01/25 Annual Physical Visit 02/17/2023 02/17/2022, 022 DIABETIC: Microalbumin/Creat inine Ratio 02/17/2023 02/17/2022 VASCULAR MANAGER + eGFR 02/18/2023 02/18/2022 DIABETIC: Foot Exam 02/18/2023 02/18/2022, 02/17/2022, 02/17/2022 [id number] Vaccine ( season) 2024 02/17/2022, 07/01/2021, 07/01/2021, Additional history exists Influenza Vaccine: Seasonal (Season Ended) 2025 06/03/2021, 06/08/2020, 06/10/2017 Lipid Disorder Screening 02/18/2027 02/18/2022, 01/25 Pneumococcal Vaccine Completed 02/17/2022 HCV Screening Completed 02/18/2022 HIV [place] Screening Completed 02/18/2022 Varicella Vaccine Discontinued Procedures Procedure Name Priority Date/Time Associated Diagnosis Comments HEMOGLOBIN A1C Routine 02/18/2022 4:43 PM CDT Uncontrolled type 2 diabetes mellitus with hyperglycemia (HCC) COMPREHENSIVE METABOLIC PANEL (CMP) Routine 02/18/2022 4:43 PM CDT Uncontrolled type 2 diabetes mellitus with hyperglycemia (HCC) HIV ANTIGEN/ANTIBODY COMBO (HIV-1 AND HIV-2) Routine 02/18/2022 4:43 PM CDT Screening for HIV (human immunodeficiency virus) HEPATITIS C ANTIBODY Routine 02/18/2022 4:43 PM CDT Need for hepatitis C screening test LIPID PANEL Routine 02/18/2022 4:43 PM CDT Screening for lipid disorders URINE ALBUMIN/CREATININE RATIO, RANDOM ( MICROALBUMIN ) Routine 02/17/2022 3:14 PM CDT Uncontrolled type 2 diabetes mellitus with hyperglycemia (HCC) HEALTH MAINTENANCE DIABETIC FOOT EXAM Routine 02/17/2022 2:44 PM CDT from Last 3 Months or Most Recently Relevant to Health Maintenance Results * HIV ANTIGEN/ANTIBODY COMBO (HIV-1 AND HIV-2) (02/18/2022 4:43 PM CDT) Pathologist [facility] HIV Antigen/Antibod y, Qualitative Negative Negative 02/18/2022 9:49 PM CDT [facility] Comment:Assay switched to th e [employer] HIV Duo assay on 08/13/2021. Blood Venipuncture / Unknown 02/18/2022 4:43 PM CDT 02/18/2022 4:46 PM CDT us [facility] CHEMISTRY ORDERABLES F inal Result [facility] [address] [place] [address] * HEPATITIS C ANTIBODY (02/18/2022 4:43 PM CDT) Hepatitis C Antibody Negative Negative 02/18/2022 9:49 PM CDT [facility] Comment: Results from this assay may be falsely decreased in patients taking high-dose biotin (>5 mg) within 12 hours of specimen collection. Blood Venipuncture / Unknown 02/18/2022 4:43 PM CDT 02/18/2022 4:46 PM CDT [employer] CHEMISTRY ORDERABLES F inal Result Performing Organization Address [facility] de Phone Number [facility] [address] [place] [address] * (ABNORMAL) HEMOGLOBIN A1C (02/18/2022 4:43 PM CDT) Hemoglobin A1c 6.2(H) <6.0 % 02/18/2022 9:48 PM CDT [facility] Comment: Glycemic Control Guidelines: Non-diabetic <6% Goal <7% Therapeutic Action >8% Estimated Average Glucose 131 mg/dL 02/18/2022 9:48 PM CDT [facility] Comment:The estimated averag e glucose (eAG) calculated from the HbA1c changed on 05/15/08. See Laboratory Bulletins in the Department of Pathology Laboratory Services Handbook for a full discussion. Note that the new calculated glucose will now be lower. The A1c result is unchanged. Whole Blood Venipuncture / Unknown 02/18/2022 4:43 PM CDT 02/18/2022 4:46 PM CDT [employer] CHEMISTRY ORDERABLES F inal Result Performing Organization Address [facility] de Phone Number [facility] [address] [place] [address] * LIPID PANEL (02/18/2022 4:43 PM CDT) Specimen Type Fasting 02/18/2022 9:36 PM CDT [facility] Cholesterol 190 mg/dL 02/18/2022 9:36 PM CDT [facility] Comment: Reference Range: Less than 200 mg/dL - desirable 200 - 240 mg/dL - increased risk Above 240 mg/dL - significant risk Triglycerides 63 0 - 150 mg/dL 02/18/2022 9:36 PM CDT [facility] Comment: Reference Ranges: Normal: <150 mg/dL Borderline-high: 150-199 mg/dL High: 200-499 mg/dL Very high: > or = 500 mg/dL HDL Cholesterol 52 >=40 mg/dL 02/18/2022 9:36 PM CDT [facility] LDL Cholesterol, Calculated 126 <=130 mg/dL 02/18/2022 9:36 PM CDT [facility] Non-HDL Cholesterol, Calculated 138 mg/dL 02/18/2022 9:36 PM CDT [facility] Blood Venipuncture / Unknown 02/18/2022 4:43 PM CDT 02/18/2022 4:46 PM CDT us [facility] CHEMISTRY ORDERABLES F inal Result [facility] [address] [place] [address] * (ABNORMAL) COMPREHENSIVE METABOLIC PANEL (CMP) (02/18/2022 4:43 PM CDT) Sodium 140 135 - 145 mEq/L 02/18/2022 9:36 PM CDT [facility] Potassium 3.9 3.5 - 5.0 mEq/L 02/18/2022 9:36 PM CDT [facility] Chloride 104 95 - 107 mEq/L 02/18/2022 9:36 PM CDT [facility] CO2 24 22 - 29 mEq/L 02/18/2022 9:36 PM CDT [facility] BUN (blood urea nitrogen) 12 10 - 20 mg/dL 02/18/2022 9:36 PM CDT [facility] Creatinine 1.1 0.6 - 1.2 mg/dL 02/18/2022 9:36 PM CDT [facility] Comment:eGFR equation switch ed to CKD-EPI on 01/19/2018. Calculated GFR values are not valid in clinical settings where serum creatinine is changing. Glucose 99 65 - 139 mg/dL 02/18/2022 9:36 PM CDT [facility] Comment:Reference range is f or a random glucose concentration. The Expert Committee on the Diagnosis and Classification of Diabetes has defined impaired fasting glucose as greater than or equal to 100 mg/dL but less than 126 mg/dL (Diabetes Care 28 Suppl 1: S41, 2005). Calcium 9.4 8.5 - 10.5 mg/dL 02/18/2022 9:36 PM [facility] Total Protein 7.9 6.0 - 8.0 g/dL 02/18/2022 9:36 PM [facility] Albumin 5.0(H) 3.4 - 4.8 g/dL 02/18/2022 9:36 PM [facility] AST (Aspartate Aminotransferase) 26 0 - 40 U/L 02/18/2022 9:36 PM [facility] Comment:Adult reference rang es updated on 06/21/13 at 830am ALP (Alkaline Phosphatase) 83 40 - 129 U/L 02/18/2022 9:36 PM [facility] Bilirubin, Total 0.7 <=1.2 mg/dL 02/18/2022 9:36 PM [facility] ALT (Alanine Aminotransferase) 32 0 - 41 U/L 02/18/2022 9:36 PM [facility] Comment:The upper limit of n ormal for alanine aminotransferase (ALT) reference ranges for adults is controversial with some authorities recommending limit as low as 30 U/L for males and 19 U/L for females. There is increased incidence of subclinical liver disease (e.g., early steatohepatitis) in patients with ALT values in the range of 31-41 U/L for males and 20-33 U/L for females. ALT values should always be interpreted in conjunction with clinical history, physical examination findings, and, if applicable, data from other diagnostic tests. Anion Gap 12 <17 mEq/L 02/18/2022 9:36 PM [facility] eGFR - Skb-Lylkvpz-Txvcwtum 82 >60 mL/min/1. 73 m2 02/18/2022 9:36 PM [facility] eGFR - -Citizen Of [place] >90 >60 mL/min/1. 73 m2 02/18/2022 9:36 PM [facility] Blood Venipuncture / Unknown 02/18/2022 4:43 PM CDT 02/18/2022 4:46 PM CDT [facility] CHEMISTRY ORDERABLES F inal Result [facility] [address] [place] [address] * MICROALBUMIN, URINE RANDOM (02/17/2022 3:14 PM CDT) Urine Albumin/Creatin ine Ratio 5.3 0.0 - 19.9 g/mg 02/17/2022 9:34 PM CDT [facility] Creatinine - Urine, Random 189.5 mg/dL 02/17/2022 9:34 PM CDT [facility] Urine 02/17/2022 3:14 PM CDT 02/17/2022 3:14 PM CDT [facility] RANDOM URINE Final Result Performing Organization Address City/[facility]/ZIP Co de Phone Number [facility] [address] [place] [address] from Last 3 Months or Most Recently Relevant to Health Maintenance Insurance [facility] Care Teams Coating Inspector Relationship Specialty Start Date End Date Provider, No-Primary Care PCP - General 07/15/23
--- OUTSIDE RECORDS SUMMARY | 2024-11-22 10:20 | XMS_ITS | Referral Summary ---
Author Organization [facility] Address [address] [place] [address] Phone Care Team Providers Care Networks Software Consultant Name Role Phone Provider, No-Primary Care Primary Care Provider Unavailable Source Comments This disclosure is being made pursuant to the Care Everywhere program,applicable federal and state laws, and may not contain all informationavailable regarding this patient.[facility] Practices Allergies Active Allergy Reactions Criticality Noted [...] Pneumococcal Conjugate, PCV2 0 (Prevnar 20) 02/17/2022 Social History Tobacco Use Types Packs/Day Years [...] Sex Assigned at Male 08/13/2021 12:57 PM [facility] Legal Sex Male 2:59 AM CDT Gender Identity Male 08/13/2021 12:57 PM [facility] Sexual Orientation Straight 08/13/2021 12 :57 PM [facility] Last Filed Vital Signs Vital Sign Reading Time Taken Comments Blood Pressure 144/92 07/15/2023 4:31 PM [facility] Pulse 96 07/15/2023 4:31 PM [facility] Temperature 37.1 C (98.8 F) 07/15/2023 4:31 PM [facility] Respiratory Rate 16 05/06/2022 9:26 AM CDT Oxygen Saturation 98% 07/15/2023 4:31 PM [facility] Inhaled Oxygen Concentration - - Weight 148.4 kg (327 lb 2.6 oz) 07/15/2023 4:31 PM [facility] Height 185.4 cm (6' 0.99 ) 10/07/2022 1 2:49 PM CDT Body Mass Index 43.17 10/07/2022 12:49 PM CDT Plan of Treatment Not on file Procedures Procedure Name Priority Date/Time Associated Diagnosis [...] (HIV-1 AND HIV-2) (02/18/2022 4:43 PM CDT) HIV Antigen/Antibod y, Qualitative Negative Negative 02/18/2022 9:49 PM CDT [facility] Comment:Assay switched to e [employer] HIV Duo assay on 08/13/2021. Blood Venipuncture / Unknown 02/18/2022 4:43 PM CDT 02/18/2022 4:46 PM CDT [employer] CHEMISTRY ORDERABLES F inal Result Performing Organization Address [facility] Co de Phone Number [facility] [address] [place] [address] * HEPATITIS C ANTIBODY (02/18/2022 4:43 PM CDT) Pathologist [facility] Hepatitis C Antibody Negative Negative 02/18/2022 9:49 PM CDT [facility] Comment: Results from this assay may be falsely decreased in patients taking high-dose biotin (>5 mg) within 12 hours of specimen collection. Blood Venipuncture / Unknown 02/18/2022 4:43 PM CDT 02/18/2022 4:46 PM CDT [employer] CHEMISTRY ORDERABLES F inal Result Performing Organization Address [facility] de Phone Number [facility] [address] [place] [address] * (ABNORMAL) HEMOGLOBIN A1C (02/18/2022 4:43 PM CDT) [facility] Hemoglobin A1c 6.2(H) <6.0 % 02/18/2022 9:48 PM CDT [facility] Comment: Glycemic Control Guidelines: Non-diabetic <6% Goal <7% Therapeutic Action >8% Estimated Average Glucose 131 mg/dL 02/18/2022 9:48 PM CDT [facility] Comment:The estimated averag e glucose (eAG) calculated from the HbA1c changed on 05/15/08. See Laboratory Bulletins in the Department of Pathology Laboratory Services Handbook for a full discussion. Note that the new calculated glucose will now be lower. The A1c result is unchanged. Whole Blood Venipuncture / Unknown 02/18/2022 4:43 PM CDT 02/18/2022 4:46 PM CDT [employer] CHEMISTRY ORDERABLES F inal Result [facility] [address] [place] [address] * LIPID PANEL (02/18/2022 4:43 PM CDT) Specimen Type Fasting 02/18/2022 9:36 PM CDT [facility] Cholesterol 190 mg/dL 02/18/2022 9:36 PM CDT [facility] Comment: Reference Range: Less than 200 mg/dL - desirable 200 - 240 mg/dL - increased risk Above 240 mg/dL - significant risk Triglycerides 63 0 - 150 mg/dL 02/18/2022 9:36 PM CDT [facility] Comment: Reference Ranges: Normal: <150 mg/dL Borderline-high: 150-199 mg/dL High: 200-499 mg/dL Very high: > or = 500 mg/dL HDL Cholesterol 52 >=40 mg/dL 02/18/2022 9:36 PM CDT [facility] LDL Cholesterol, Calculated 126 <=130 mg/dL 02/18/2022 9:36 PM CDT [facility] Non-HDL Cholesterol, Calculated 138 mg/dL 02/18/2022 9:36 PM CDT [facility] Blood Venipuncture / Unknown 02/18/2022 4:43 PM CDT 02/18/2022 4:46 PM CDT [employer] CHEMISTRY ORDERABLES F inal Result [facility] [address] [place] [address] * (ABNORMAL) COMPREHENSIVE METABOLIC PANEL (CMP) (02/18/2022 4:43 PM CDT) Sodium 140 135 - 145 mEq/L 02/18/2022 9:36 PM CDT [facility] Potassium 3.9 3.5 - 5.0 mEq/L 02/18/2022 9:36 PM CDT [facility] Chloride 104 95 - 107 mEq/L 02/18/2022 9:36 PM [facility] CO2 24 22 - 29 mEq/L 02/18/2022 9:36 PM [facility] BUN (blood urea nitrogen) 12 10 - 20 mg/dL 02/18/2022 9:36 PM [facility] Creatinine 1.1 0.6 - 1.2 mg/dL 02/18/2022 9:36 PM [facility] Comment:eGFR equation switch ed to CKD-EPI on 01/19/2018. Calculated GFR values are not valid in clinical settings where serum creatinine is changing. Glucose 99 65 - 139 mg/dL 02/18/2022 9:36 PM [facility] Comment:Reference range is f or a random glucose concentration. The Expert Committee on the Diagnosis and Classification of Diabetes has defined impaired fasting glucose as greater than or equal to 100 mg/dL but less than 126 mg/dL (Diabetes Care 28 Suppl 1: S41, 2005). Calcium 9.4 8.5 - 10.5 mg/dL 02/18/2022 9:36 PM [facility] Total Protein 7.9 6.0 - 8.0 g/dL 02/18/2022 9:36 PM [facility] Albumin 5.0(H) 3.4 - 4.8 g/dL 02/18/2022 9:36 PM [facility] AST (Aspartate Aminotransferase) 26 0 - 40 U/L 02/18/2022 9:36 PM [facility] Comment:Adult reference rang es updated on 06/21/13 at 830am ALP (Alkaline Phosphatase) 83 40 - 129 U/L 02/18/2022 9:36 PM [facility] Bilirubin, Total 0.7 <=1.2 mg/dL 02/18/2022 9:36 PM [facility] ALT (Alanine Aminotransferase) 32 0 - 41 U/L 02/18/2022 9:36 PM [facility] Comment:The upper limit of n ormal for [...] Gap 12 <17 mEq/L 02/18/2022 9:36 PM CDT [facility] eGFR - Mgc-Rzymcyh-Wzbrokva 82 >60 mL/min/1. 73 m2 02/18/2022 9:36 PM CDT [facility] eGFR - -Citizen Of [place] >90 >60 mL/min/1. 73 m2 02/18/2022 9:36 PM CDT [facility] Blood Venipuncture / Unknown 02/18/2022 4:43 PM CDT 02/18/2022 4:46 PM CDT [employer] CHEMISTRY ORDERABLES F inal Result [facility] [address] [place] [address] * MICROALBUMIN, URINE RANDOM (02/17/2022 3:14 PM CDT) Urine Albumin/Creatin ine Ratio 5.3 0.0 - 19.9 g/mg 02/17/2022 9:34 PM CDT [facility] Creatinine - Urine, Random 189.5 mg/dL 02/17/2022 9:34 PM CDT [facility] Urine 02/17/2022 3:14 PM CDT 02/17/2022 3:14 PM CDT [employer] RANDOM URINE Final Result Performing Organization Address City/[facility]/ZIP Co de Phone Number [facility] [address] [place] [address] from Last 3 Months or Most Recently Relevant to Health Maintenance Insurance [employer] Software Consultant Relationship Specialty Start Date End Date Provider, No-Primary Care PCP - General 07/15/23
[2024-11-22 10:32] LABS: Add Urine Microscopic? YES; Appearance Urine Clear (Clear); Bacteria Urine None Seen /hpf; Bilirubin Urine Negative (Negative); Blood Urine 2+ (Negative); Color Urine Yellow (Yellow); Glucose Urine UA Negative (Negative); Ketones Urine 1+ mg/dL (Negative); Leukocyte Esterase Ur Trace LEU/UL (Negative); Nitrate Urine Negative (Negative); Non Pathogenic Casts 0-2; Protein Urine Trace mg/dL (Negative); Squamous Epithelial Cell Urine None Seen /hpf (Few); WBC Urine 0-5 /hpf (0-3); pH Urine 6.5 (5.0-9.0)
[2024-11-22 11:03] VITALS: BP 166/99; PULSE 76; RESP 17; O2SAT 100
== END 2024-11-22 11:06 | disposition home or self-care (01) ==
PROVIDERS: Emergency Provider Emergency Medicine
DX: N13.2 Hydronephrosis with renal and ureteral calculous obstruction (principal); E78.5 Hyperlipidemia, unspecified; E11.9 Type 2 diabetes mellitus without complications; I10 Essential (primary) hypertension; Z87.442 Personal history of urinary calculi; Z79.84 Long term (current) use of oral hypoglycemic drugs
CPT/HCPCS: 36415; 74176; 80053; 81001; 85025; 96361; 96374; 99284; J1885; J7030